=== PATIENT | male | born 1955 | race Caucasian/White ===

== ENCOUNTER 2016-08-12 00:16 | Emergency (ER) | payer MEDICARE ==
[2016-08-12 00:56] LABS: BASO % 0.3 % (0.2-1.2); EOS # 0.3 10_X3_uL (0.0-0.5); EOS % 5.3 % (0.8-7.0); GRAN # 3.3 10_X3_uL (1.8-5.4); GRAN % 51.6 % (34.0-67.9); HEMATOCRIT 45.1 % (40-51); HEMOGLOBIN 15.5 g/dL (13.7-17.5); LYMPH # 1.8 10_X3_uL (1.3-3.6); LYMPH % 28.6 % (21.8-53.1); MEAN CORPUSCULAR HEMOGLOBIN 27.6 pg (27.0-33.0); MEAN CORPUSCULAR HGB CONC 34.4 g/dL (32.0-36.0); MEAN CORPUSCULAR VOLUME 80.4 fL (79-92); MEAN PLATELET VOLUME 8.9 fl (7.5-11.5); MONO # 0.9 10_X3_uL (0.3-0.8); MONO % 14.2 % (5.3-12.2); PLATELET COUNT 246 x10_3/uL (163-337); RED BLOOD COUNT 5.61 x10_6/uL (4.6-6.1); RED CELL DISTRIBUTION WIDTH 14.4 % (11.6-14.4); WHITE BLOOD COUNT 6.4 x10_3/uL (4.2-9.1)
[2016-08-12 01:15] LABS: INR 1.1 (0.9-1.1); PROTHROMBIN TIME (PATIENT) 11.2 SECONDS (9.9-11.1)
[2016-08-12 01:26] LABS: ALKALINE PHOSPHATASE 80 U/L (50-136); ALT/SGPT 13 U/L (7.53-40.17); AST/SGOT 16 U/L (6.66-35.34); BILIRUBIN,TOTAL 0.31 mg/dL (0.0-1.0); BLOOD UREA NITROGEN 13 mg/dL (7-18); CALCIUM 8.5 mg/dL (8.7-10.7); CARBON DIOXIDE 21 mmol/L (21-32); CREATINE KINASE 53 U/L (35-232); CREATININE 1.1 mg/dL (0.6-1.3); GLUCOSE,RANDOM 127 mg/dL (70-99); POTASSIUM 3.8 mmol/L (3.5-5.1); SODIUM 138 mmol/L (136-145)
== END 2016-08-12 07:15 | disposition short-term general hospital (02) ==
LOC: ER 00:16
PROVIDERS: Emergency Medicine
DX: I48.91 Unspecified atrial fibrillation (principal); R00.0 Tachycardia, unspecified; E11.9 Type 2 diabetes mellitus without complications; J44.9 Chronic obstructive pulmonary disease, unspecified; Z79.891 Long term (current) use of opiate analgesic; Z79.899 Other long term (current) drug therapy
CPT/HCPCS: 36415; 71010; 80053; 82550; 82553; 85025; 85610; 85730; 93005; 96365; 96366; 96372; 96376; 99070; 99284; 99285-25